=== PATIENT | female | born 1990 | race Caucasian/White ===

== ENCOUNTER 2018-08-05 19:17 | Emergency (ER) | payer BC ==
[~2018-08-05] VITALS: Ht 175.3 cm; Wt 93.0 kg
[2018-08-05 19:30] VITALS: BP 123/70
[2018-08-05] MEDS ORDERED: fentaNYL PF VIAL 100 MCG/2 ML VIAL IM ONE (19:45)
[2018-08-05] MEDS ORDERED: ACETAMINOPHEN 325 MG TABLET. PO ONE (19:45)
[2018-08-05] MEDS ORDERED: DEXAMETHASONE SOD PHOS 20 MG/5 ML VIAL. IM ONE (19:45)
[2018-08-05] MEDS ORDERED: HYDROcodone/APAP 10/325 1 TAB TABLET PO ONE (20:00)
[2018-08-05] MEDS ORDERED: HYDR-3164 PO (20:58)
--- NOTE | 2018-08-05 20:58 | PHYS DOC ---
Past Medical History Past Medical History: Other Additional Past Medical Histor: "trigeminal neuralgia" Past Surgical History: Other Additional Past Surgical Histo: Right arm, left ring finger Alcohol Use: None Drug Use: None Adult General Chief Complaint Chief Complaint: PAIN CONTROL HPI HPI Patient is a 27 year old F with trigeminal neuralgia Review of Systems Review of Systems Constitutional: Denies fever or chills [] Eyes: Denies change in visual acuity, redness, or eye pain [] HENT: Denies nasal congestion or sore throat [] Respiratory: Denies cough or shortness of breath [] Cardiovascular: No additional information not addressed in HPI [] GI: Denies abdominal pain, nausea, vomiting, bloody stools or diarrhea [] : Denies dysuria or hematuria [] Musculoskeletal: Denies back pain or joint pain [] Integument: Denies rash or skin lesions [] Neurologic: Denies headache, focal weakness or sensory changes [] Endocrine: Denies polyuria or polydipsia [] All other systems were reviewed and found to be within normal limits, except as documented in this note. Current Medications Current Medications Current Medications Medications (Trade) Dose Ordered Sig/Lesly Start Time Stop Time Status Last Admin Dose Admin Acetaminophen (Tylenol) 650 mg 1X ONCE 08/05/18 19:45 08/05/18 19:58 DC 08/05/18 20:04 650 MG Acetaminophen/ Hydrocodone Bitart (Lortab 10/325) 1 tab 1X ONCE 08/05/18 20:00 08/05/18 20:01 DC 08/05/18 20:05 1 TAB Dexamethasone Sodium Phosphate (Decadron) 10 mg 1X ONCE 08/05/18 19:45 08/05/18 19:46 DC 08/05/18 20:05 10 MG Fentanyl Citrate (Fentanyl 2ml Vial) 75 mcg 1X ONCE 08/05/18 19:45 08/05/18 19:59 DC Allergies Allergies Allergies Coded Allergies Type Severity Reaction Last Updated Verified fentanyl Adverse Reaction Intermediate Nausea and Vomiting 03/13/13 Yes morphine Adverse Reaction Intermediate NAUSEA AND VOMITING 03/21/15 Yes Physical Exam Physical Exam Constitutional: Well developed, well nourished, no acute distress, non-toxic appearance. [] HENT: Normocephalic, atraumatic, bilateral external ears normal, oropharynx moist, no oral exudates, nose normal. [] Eyes: PERRLA, EOMI, conjunctiva normal, no discharge. [] Neck: Normal range of motion, no tenderness, supple, no stridor. [] Cardiovascular:Heart rate regular rhythm, no murmur [] Lungs & Thorax: Bilateral breath sounds clear to auscultation [] Abdomen: Bowel sounds normal, soft, no tenderness, no masses, no pulsatile masses. [] Skin: Warm, dry, no erythema, no rash. [] Back: No tenderness, no CVA tenderness. [] Extremities: No tenderness, no cyanosis, no clubbing, ROM intact, no edema. [] Neurologic: Alert and oriented X 3, normal motor function, normal sensory function, no focal deficits noted. [] Psychologic: Affect normal, judgement normal, mood normal. [] Current Patient Data Vital Signs Vital Signs Date Time Temp Pulse Resp B/P (MAP) Pulse Ox O2 Delivery O2 Flow Rate FiO2 08/05/18 19:30 100.8 119 18 123/70 (87) 97 Room Air 100.8 Lab Values Laboratory Tests Test 08/05/18 19:48 POC Urine HCG, Qualitative Hcg negative (Negative) EKG EKG [] Radiology/Procedures Radiology/Procedures [] Course & Med Decision Making Course & Med Decision Making Pertinent Labs and Imaging studies reviewed. (See chart for details) [] Dragon Disclaimer Dragon Disclaimer This electronic medical record was generated, in whole or in part, using a voice recognition dictation system. Departure Departure Impression: Primary Impression: Trigeminal neuralgia of right side of face Disposition: 01 HOME, SELF-CARE Condition: IMPROVED Referrals: JORGE STEPHENS DO (PCP) Patient Instructions: Trigeminal Neuralgia Additional Instructions: Please follow up with your doctor for follow up. Scripts Hydrocodone/Apap 5-325 (NORCO 5-325 TABLET) 1 Each Tablet 1-2 TAB PO Q4-6HRS PRN for PAIN, #15 TAB Prov: SULAIMAN TIPTON 08/05/18 SULAIMAN TIPTON August 05, 2018 20:58
== END 2018-08-05 21:10 | disposition home or self-care (01) ==
LOC: ER 19:17
DX: G50.0 Trigeminal neuralgia (principal); Z88.5 Allergy status to narcotic agent; Z88.8 Allergy status to other drugs, medicaments and biological substances
CPT/HCPCS: 81025; 87070; 87880; 96372; 99283; J1100; 99284

== ENCOUNTER 2018-10-24 17:56 | Emergency (ER) | payer BC ==
[~2018-10-24] VITALS: Ht 165.1 cm; Wt 95.3 kg
[~2018-10-24 17:56] MED LIST: HYDR-3164 PO
[2018-10-24] MEDS ORDERED: KETOROLAC 15 MG/ML VIAL. IV ONE (18:30)
[2018-10-24 19:18] VITALS: BP 131/81
--- NOTE | 2018-10-24 19:28 | RAD ---
Chest radiograph 10/24/2018 6:59 PM INDICATION: Chest pain COMPARISON: None available TECHNIQUE: Portable upright frontal view of the chest is provided. FINDINGS: The cardiomediastinal silhouette is within normal limits. There are no pleural effusions. There is no pulmonary vascular congestion. There is no pneumothorax. The lungs are clear. No significant osseous abnormality is identified. IMPRESSION: No acute cardiopulmonary process. Electronically signed by: Malina Harvey MD (10/24/2018 7:25 PM) [facility]
[2018-10-24 19:30] LABS: BASO # 0.1 x10^3/uL (0.0-0.2); BASO % 1 % (0-3); EOS # 0.3 x10^3/uL (0.0-0.7); EOS % 3 % (0-3); HEMATOCRIT 37.7 % (36.0-47.0); HEMOGLOBIN 12.9 g/dL (12.0-15.5); LYMPH # 2.7 x10^3/uL (1.0-4.8); LYMPH % 34 % (24-48); MEAN CORPUSCULAR HEMOGLOBIN 29 pg (25-35); MEAN CORPUSCULAR HGB CONC 34 g/dL (31-37); MEAN CORPUSCULAR VOLUME 86 fL (79-100); MONO # 0.6 x10^3/uL (0.0-1.1); MONO % 7 % (0-9); NEUT # 4.2 x10^3/uL (1.8-7.7); NEUT % 54 % (31-73); PLATELET COUNT 208 x10^3/uL (140-400); RED BLOOD COUNT 4.41 x10^6/uL (3.50-5.40); RED CELL DISTRIBUTION WIDTH 13.7 % (11.5-14.5); WHITE BLOOD COUNT 7.8 x10^3/uL (4.0-11.0)
[2018-10-24 19:38] LABS: PROTHROMBIN TIME PATIENT 12.3 SEC (11.7-14.0)
[2018-10-24 19:47] LABS: CALCIUM 8.8 mg/dL (8.5-10.1); CREATININE 0.7 mg/dL (0.6-1.0); D-DIMER 0.33 ug/mlFEU (0.00-0.50); GFR 100.4; POTASSIUM 3.9 mmol/L (3.5-5.1)
[2018-10-24 19:59] LABS: ALBUMIN 3.8 g/dL (3.4-5.0); ALBUMIN/GLOBULIN RATIO 1.1 (1.0-1.7); TOTAL BILIRUBIN 0.2 mg/dL (0.2-1.0); TOTAL PROTEIN 7.4 g/dL (6.4-8.2)
--- NOTE | 2018-10-24 20:31 | PHYS DOC ---
Past Medical History Past Medical History: No Pertinent History Additional Past Medical Histor: "trigeminal neuralgia" Past Surgical History: Other Additional Past Surgical Histo: Right arm, left ring finger Alcohol Use: None Drug Use: None Adult General Chief Complaint Chief Complaint: CHEST PAIN [facility] HPI Patient is a 28 year old female presents with chest pain left-sided the chest happened after she lifted a 40 pound box earlier in the day she thought arrhythmia might be out she had gone to the chiropractor earlier as well. Not having any neck pain at all. Pain is left side sharp and pressure worse with movement and twisting Worsening with time moderate in nature All other ROS neg unless otherwise noted in HPI Review of Systems Review of Systems SEE ABOVE Current Medications Current Medications Current Medications Medications (Trade) Dose Ordered Sig/Lesly Start Time Stop Time Status Last Admin Dose Admin Ketorolac Tromethamine (Toradol 15mg Vial) 15 mg 1X ONCE 10/24/18 18:30 10/24/18 18:31 DC 10/24/18 19:21 15 MG Allergies Allergies Allergies Coded Allergies Type Severity Reaction Last Updated Verified fentanyl Adverse Reaction Intermediate Nausea and Vomiting 03/13/13 Yes morphine Adverse Reaction Intermediate NAUSEA AND VOMITING 03/21/15 Yes Physical Exam Physical Exam see above Constitutional: Well developed, well nourished, no acute distress, non-toxic appearance. [] HENT: Normocephalic, atraumatic, bilateral external ears normal, oropharynx moist, no oral exudates, nose normal. [] Eyes: PERRLA, EOMI, conjunctiva normal, no discharge. [] Neck: Normal range of motion, no tenderness, supple, no stridor. [] Cardiovascular:Heart rate regular rhythm, no murmur [] Lungs & Thorax: Bilateral breath sounds clear to auscultation []reducible chest wall tenderness is noted on the left Abdomen: Bowel sounds normal, soft, no tenderness, no masses, no pulsatile masses. [] Skin: Warm, dry, no erythema, no rash. [] Back: No tenderness, no CVA tenderness. [] Extremities: No tenderness, no cyanosis, no clubbing, ROM intact, no edema. [] Neurologic: Alert and oriented X 3, normal motor function, normal sensory function, no focal deficits noted. [] Psychologic: Affect normal, judgement normal, mood normal. [] Current Patient Data Vital Signs Vital Signs Date Time Temp Pulse Resp B/P (MAP) Pulse Ox O2 Delivery O2 Flow Rate FiO2 10/24/18 19:18 97.8 74 14 131/81 (98) 98 Room Air 97.8 Lab Values Laboratory Tests Test 10/24/18 18:44 10/24/18 19:17 POC Urine HCG, Qualitative Hcg negative (Negative) White Blood Count 7.8 x10^3/uL (4.0-11.0) Red Blood Count 4.41 x10^6/uL (3.50-5.40) Hemoglobin 12.9 g/dL (12.0-15.5) Hematocrit 37.7 % (36.0-47.0) Mean Corpuscular Volume 86 fL (79-100) Mean Corpuscular Hemoglobin 29 pg (25-35) Mean Corpuscular Hemoglobin Concent 34 g/dL (31-37) Red Cell Distribution Width 13.7 % (11.5-14.5) Platelet Count 208 x10^3/uL (140-400) Neutrophils (%) (Auto) 54 % (31-73) Lymphocytes (%) (Auto) 34 % (24-48) Monocytes (%) (Auto) 7 % (0-9) Eosinophils (%) (Auto) 3 % (0-3) Basophils (%) (Auto) 1 % (0-3) Neutrophils # (Auto) 4.2 x10^3/uL (1.8-7.7) Lymphocytes # (Auto) 2.7 x10^3/uL (1.0-4.8) Monocytes # (Auto) 0.6 x10^3/uL (0.0-1.1) Eosinophils # (Auto) 0.3 x10^3/uL (0.0-0.7) Basophils # (Auto) 0.1 x10^3/uL (0.0-0.2) Prothrombin Time 12.3 SEC (11.7-14.0) Prothrombin Time INR 0.9 (0.8-1.1) D-Dimer (Perri) 0.33 ug/mlFEU (0.00-0.50) Sodium Level 143 mmol/L (136-145) Potassium Level 3.9 mmol/L (3.5-5.1) Chloride Level 107 mmol/L (98-107) Carbon Dioxide Level 25 mmol/L (21-32) Anion Gap 11 (6-14) Blood Urea Nitrogen 14 mg/dL (7-20) Creatinine 0.7 mg/dL (0.6-1.0) Estimated GFR (Cockcroft-Gault) 100.4 BUN/Creatinine Ratio 20 (6-20) Glucose Level 101 mg/dL (70-99) H Calcium Level 8.8 mg/dL (8.5-10.1) Total Bilirubin 0.2 mg/dL (0.2-1.0) Aspartate Amino Transferase (AST) 19 U/L (15-37) Alanine Aminotransferase (ALT) 22 U/L (14-59) Alkaline Phosphatase 105 U/L (46-116) Troponin I Quantitative < 0.017 ng/mL (0.000-0.055) Total Protein 7.4 g/dL (6.4-8.2) Albumin 3.8 g/dL (3.4-5.0) Albumin/Globulin Ratio 1.1 (1.0-1.7) Laboratory Tests 10/24/18 19:17 Laboratory Tests 10/24/18 19:17 EKG EKG Normal sinus rhythm rate of 78 RSR prime pattern QRS 96 no STEMI[] Radiology/Procedures Radiology/Procedures [] Course & Med Decision Making Course & Med Decision Making Pertinent Labs and Imaging studies reviewed. (See chart for details) [] IMPRESSION: No acute cardiopulmonary process. Electronically signed by: Buzz Harvey MD (10/24/2018 7:25 PM) [facility] DICTATED and SIGNED BY: BUZZ HARVEY MD DATE: 10/24/181924 Chest wall pain d-dimer negative patient reassured Dragon Disclaimer Dragon Disclaimer This electronic medical record was generated, in whole or in part, using a voice recognition dictation system. Departure Departure Impression: Primary Impression: Chest pain Disposition: HOME, SELF-CARE Condition: STABLE Patient Instructions: Chest Pain (Nonspecific), [id number] YOJANA BATES MD Oct 24, 2018 20:31
--- NOTE | 2018-10-25 07:24 | EKG ---
[facility] [address] [place] [address] Test Date: 2018-10-24 Test Time: 18:05:49 Pat Name: VITOR SCHAEFFER Department: Room: Gender: F Cableman: : 1990 Requested By: YOJANA BATES Order Number: [id number] Reading MD: Measurements Intervals [place] Rate: 78 P: 45 MA: 160 QRS: 61 QRSD: 96 T: 27 QT: 348 QTc: 400 Interpretive Statements SINUS RHYTHM INCOMPLETE RIGHT BUNDLE BRANCH BLOCK T ABNORMALITY IN ANTERIOR LEADS ABNORMAL ECG RI6.01 No previous ECG available for comparison
== END 2018-10-24 20:45 | disposition home or self-care (01) ==
LOC: ER 17:56
DX: R07.89 Other chest pain (principal); Z88.4 Allergy status to anesthetic agent; Z88.5 Allergy status to narcotic agent
CPT/HCPCS: 36415; 71045; 80053; 81025; 84484; 85025; 85379; 85610; 93005; 96374; 99285; J1885

== ENCOUNTER 2020-09-18 22:08 | Emergency (ER) | payer SELFPAY ==
[~2020-09-18] VITALS: Ht 175.3 cm; Wt 84.1 kg
[2020-09-18 22:53] LABS: BILIRUBIN,URINE NEGATIVE (NEG); CLARITY,URINE CLEAR; COLOR,URINE YELLOW; NITRITE,URINE NEGATIVE (NEG); PH,URINE 7.5 (<5.0-8.0); PROTEIN,URINE NEGATIVE (NEG-TRACE); UROBILINOGEN,URINE 0.2 mg/dL (0.2 mg/dL)
[2020-09-18 23:07] LABS: BACTERIA,URINE FEW /HPF (0-FEW); RBC,URINE OCC /HPF (0-2)
--- NOTE | 2020-09-19 00:11 | ED.ADGEN ---
Past Medical History Past Medical History: No Pertinent History Additional Past Medical Histor: "trigeminal neuralgia" Past Surgical History: Other Additional Past Surgical Histo: Right arm, left ring finger Smoking Status: Never Smoker Alcohol Use: None Drug Use: None General Adult EDM: Chief Complaint: ABDOMINAL PAIN HPI: HPI: Patient is a 29-year-old female who presents to the emergency room complaining of left lower quadrant abdominal cramping and sharp pain along with vaginal spotting. Patient believes that she is about 7 weeks . She has had complications with her prior pregnancies and has had miscarriages and stillbirths in the past. She is never had an ectopic . She has not seen [facility] for this . She states her blood type is O+. She states that the pain and spotting have been going on for the last 10 days. Is been progressively getting worse. Review of Systems: Review of Systems: Complete ROS is negative unless otherwise documented in HPI Current Medications: Current Medications Medications (Trade) Dose Ordered Sig/Lesly Start Time Stop Time Status Last Admin Dose Admin Acetaminophen (Tylenol) 1,000 mg 1X ONCE 09/19/20 01:30 09/19/20 01:31 DC 09/19/20 01:24 1,000 MG Allergies: Allergies: Allergies Coded Allergies Type Severity Reaction Last Updated Verified fentanyl Adverse Reaction Intermediate Nausea and Vomiting 03/13/13 Yes morphine Adverse Reaction Intermediate NAUSEA AND VOMITING 03/21/15 Yes Physical Exam: PE: General: Awake, alert, NAD. Well Nourished, well hydrated. Cooperative HEENT: Atraumatic, EOMI, PERRL, airway patent, moist oral mucosa Neck: Supple, trachea midline Respiratory: CTA bilaterally, normal effort, no wheezing/crackles CV: RRR, no murmur, cap refill <2 GI: Soft, nondistended, nontender, no masses MSK: No obvious deformities Skin: Warm, dry, intact Neuro: A&O x3, speech NL, sensory and motor grossly intact, no focal deficits Psych: Normal affect, normal mood, not suicidal or homicidal Current Patient Data: Labs: Laboratory Tests Test 09/18/20 22:20 09/18/20 22:23 09/19/20 00:20 Urine Collection Type Unknown Urine Color Yellow Urine Clarity Clear Urine pH 7.5 (<5.0-8.0) Urine Specific [place] 1.010 (1.000-1.030) Urine Protein Negative mg/dL (NEG-TRACE) Urine Glucose (UA) Negative mg/dL (NEG) Urine Ketones (Stick) Negative mg/dL (NEG) Urine Blood Negative (NEG) Urine Nitrite Negative (NEG) Urine Bilirubin Negative (NEG) Urine Urobilinogen Dipstick 0.2 mg/dL (0.2 mg/dL) Urine Leukocyte Esterase Negative (NEG) Urine RBC Occ /HPF (0-2) Urine WBC 1-4 /HPF (0-4) Urine Squamous Epithelial Cells Mod /LPF Urine Bacteria Few /HPF (0-FEW) POC Urine HCG, Qualitative Hcg positive (Negative) Maternal Serum HCG Beta Subunit 4442 mIU/mL (0-5) H Vital Signs: Vital Signs Date Time Temp Pulse Resp B/P (MAP) Pulse Ox O2 Delivery O2 Flow Rate FiO2 09/18/20 22:40 98.3 114 21 139/73 (95) 99 Room Air 98.3 EKG: EKG: [] Heart Score: C/O Chest Pain: N/A Risk Factors: Risk Factors: DM, Current or recent (<one month) smoker, HTN, HLP, family history of CAD, obesity. Risk Scores: Score 0 - 3: 2.5% MACE over next 6 weeks - Discharge Home Score 4 - 6: 20.3% MACE over next 6 weeks - Admit for Clinical Observation Score 7 - 10: 72.7% MACE over next 6 weeks - Early Invasive Strategies Radiology/Procedures: Radiology/Procedures: [] Course & Med Decision Making: Course & Med Decision Making Pertinent Labs and Imaging studies reviewed. (See chart for details) Patient is a 29 year-old female who presents to the Emergency Room with vaginal bleeding and left lower quadrant pain. Patient has not seen passage of tissue. She has not had a formal ultrasound and does not have a confirmed IUP. UA, Rh type, OB ultrasound, test were ordered. At this time, ultrasound shows IUP. Patient does not need rhogam. I have discussed with the patient that they are likely have a threatened . We have discussed early on in we are unable to prevent miscarriages. We discussed pelvic rest until she follows up with OBGYN. She will return to the Emergency Room if she has a large amount of bleeding, syncope, SOB. Patient's test results and vitals while in the ED were fully reviewed and discussed with the patient. Patient is stable and at this time does not need admission to the hospital. We have discussed strict return precautions and the importance of following up with their Primary Care Physician. Patient stated understanding and was given an opportunity to ask any questions. Luis Disclaimer: Dragon Disclaimer: This electronic medical record was generated, in whole or in part, using a voice recognition dictation system. Departure Departure Impression: Primary Impression: Vaginal bleeding affecting early Disposition: HOME / SELF CARE / HOMELESS Condition: STABLE Referrals: JORGE STEPHENS DO (PCP) KANDIS PHAN Jr, MD Patient Instructions: Threatened Miscarriage Additional Instructions: Please follow up next Wednesday or Wednesday for repeat ultrasound and hormone levels LEIA ODONNELL MD Sep 19, 2020 00:11
--- NOTE | 2020-09-19 00:26 | RAD ---
US OB <14 WKS +TV DATE: 09/18/2020 11:27 PM INDICATION: abd pain, . LMP 08/04/2020 COMPARISON: None. TECHNIQUE: Transabdominal and transvaginal ultrasonography of the pelvis was performed. Color Doppler and duplex were utilized as appropriate. FINDINGS: The uterus measures 9.1 x 5.9 x 5.2 cm. Gestational sac with normal morphology is seen measuring 0.80 cm, which corresponds to 5 weeks 4 days gestation. A small yolk sac is present. No pole is identified. No perigestational fluid. There is no free pelvic fluid. The right ovary measures 3.9 x 3.7 x 3.0 cm. Right ovarian follicular cyst measuring 2.8 cm. Left ova ry was not visualized. No evidence of right ovarian torsion. There is normal blood flow to the right ovary by color Doppler with arterial and venous waveforms detected. IMPRESSION: 1. Gestational sac and a small yolk sac are visualized with measurements corresponding to 5 weeks 4 d ays gestation. No pole is identified. No suspicious adnexal lesions. Findings could relate to v nate early first trimester . Correlate with serum hCG and recommend short-term follow-up ultr asound. 2. APOLONIA based on gestational sac measurements 05/18/2021. Electronically signed by: Amos Francis MD (09/19/2020 12:24 AM) [facility]
[2020-09-19 01:23] VITALS: BP 136/77
[2020-09-19] MEDS ORDERED: ACETAMINOPHEN 500 MG TABLET PO ONE (01:30)
== END 2020-09-19 01:55 | disposition home or self-care (01) ==
LOC: ER 22:08
DX: O46.91 Antepartum hemorrhage, unspecified, first trimester (principal); R10.32 Left lower quadrant pain; Z88.4 Allergy status to anesthetic agent; Z88.5 Allergy status to narcotic agent
CPT/HCPCS: 36415; 76801; 81001; 81025; 84702; 99285